=== PATIENT | male | born 1980 | race Caucasian/White ===

== ENCOUNTER → 2016-07-29 | Outpatient (CLI) | payer OTHER | LOC: LAB 09:35 | DX: R31.0 Gross hematuria (principal) ==

== ENCOUNTER → 2019-01-06 | Outpatient (CLI) | payer OTHER ==
[2019-01-06 23:31] LABS: HEPATITIS C ANTIBODY Negative (Negative)
== END ==
LOC: LAB 08:52
PROVIDERS: Nurse Practitioner Primary Care
DX: Z77.21 Contact with and (suspected) exposure to potentially hazardous body fluids (principal)

== ENCOUNTER → 2020-11-24 | Outpatient (CLI) | payer BC | LOC: RAD 15:37 | DX: M19.071 Primary osteoarthritis, right ankle and foot (principal) ==

== ENCOUNTER → 2020-12-18 | Outpatient (CLI) | payer BC | LOC: LAB 13:19 | DX: M10.071 Idiopathic gout, right ankle and foot (principal) ==

== ENCOUNTER → 2021-11-23 | Outpatient (CLI) | payer BC | LOC: RAD 15:05 | DX: M19.072 Primary osteoarthritis, left ankle and foot (principal) ==

== ENCOUNTER → 2023-10-22 | Outpatient (CLI) | payer BC ==
[2023-10-22 09:13] LABS: ALBUMIN 4.3 g/dL (3.5-5.0)
[2023-10-22 09:14] LABS: CALCIUM 9.8 mg/dL (8.3-10.5)
[2023-10-22 09:17] LABS: TOTAL BILIRUBIN 0.7 mg/dL (0.2-1.2)
== END ==
LOC: LAB 08:36
PROVIDERS: Family Medicine
DX: Z13.1 Encounter for screening for diabetes mellitus (principal); Z13.220 Encounter for screening for lipoid disorders; M1A.00X0 Idiopathic chronic gout, unspecified site, without tophus (tophi)